=== PATIENT | female | born 1975 | race Caucasian/White ===

== ENCOUNTER 2016-04-26 12:31 | Emergency (ER) | payer OTHER, BC ==
[~2016-04-26] VITALS: Ht 162.6 cm; Wt 93.7 kg
[~2016-04-26 12:31] MED LIST: CYAN10002 IM; FLXHP PO; MAGNTAB4 PO; RIZA1TAB11 PO; ROPI1TAB29 PO; SUMA6INJ SQ; TOPI100T20 PO; TRAZ100T29 PO; [UNRECOGNIZED DRUG - CODE] IV
[2016-04-26 12:41] VITALS: TEMP 36.6; Ht 162.6 cm; Wt 93.7 kg
[2016-04-26] MEDS ORDERED: HYDROmorphone INJ 1 MG/ML SYR IV STA (13:28)
[2016-04-26] MEDS ORDERED: SODIUM CHLORIDE 0.9% 1000ML 1,000 ML IV STA (13:28)
[2016-04-26] MEDS ORDERED: ONDANSETRON INJ 2 MG/ML 2 ML VIAL IV STA (13:28)
--- NOTE | 2016-04-26 13:28 | EMERGENCY ROOM VISIT NOTE ---
History Report prepared by Bambi: Natalia Steel Under the Supervision of: Dr. Mookie Good M.D. First contact with patient: 13:16 Chief Complaint: CONSTIPATION Stated Complaint: ABDOMINAL PAIN, DIFFICULTY URINATING & BOWEL MOVEM Nursing Triage Summary: Triage note: Pt reports constipation. Pt reports she has not had a bm since wednesday. pt reports she had a hysterectomy 9 weeks ago. Pt reports "i am struggling to urinate too that started on ." History of Present Illness The patient is a 41 year old female who presents to the Emergency Room with complaints of persistent constipation for the past 5 days. She also complains of abdominal pain, rating her discomfort as a 7/10. She has tried taking Ex-Lax , and states she has had "very small" bowel movements, but still feels like she is backed up. The patient has a history of gastric bypass surgery in 2002 and reports she experienced a bowel obstruction afterwards. She denies any fevers, rashes or pain or swelling in her legs. She notes she finds urinating "difficult ", but denies any dysuria or hematuria. She did undergo a hysterectomy 9 weeks ago. 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 A total of 10 systems reviewed and were otherwise negative. Past Medical & Surgical Medical Problems: (1) Anemia (2) Kidney stone (3) Migraine Surgical Problems: (1) Hx of appendectomy (2) Hx of cholecystectomy (3) Previous section Family History Diabetes mellitus FHx: cancer Hypertension Migraines Social History Smoking Status: Never Smoker Alcohol Use: occasionally Drug Use: none Marital Status: Housing Status: lives with family Occupation Status: unemployed Current/Historical Medications Scheduled Cyanocobalamin (Cyanocobalamin), 1,000 MG IM MONTHLY Cyclobenzaprine Hcl (Flexeril), 1 TAB PO TID Iron Dextran (Infed), 1 DOSE IV MONTHLY Magnesium Chloride (Slow-Mag Tab), 64 MG PO DAILY Rizatriptan Benzoate (Rizatriptan Benzoate), 10 MG PO PRN/UD Topiramate (Topamax), 200 MG PO BID Scheduled PRN Sumatriptan Succinate (Imitrex), 6 MG SQ UD PRN for Migraine Allergies Coded Allergies: Codeine (Verified Allergy, Intermediate, "CHEST CRAMPS", 01/08/14) tolerates hydromorphone Pramipexole (Unverified Allergy, Intermediate, INCREASED SYMPTOMS OF RLS, 01/08/14) Meperidine (Verified Allergy, Unknown, HIVES, 01/08/14) Morphine (Verified Allergy, Unknown, chest cramps, 01/08/14) tolerates hydromorphone Trazodone (Verified Allergy, Unknown, "UNABLE TO WALK", 01/08/14) Physical Exam Vital Signs Date Time Temp Pulse Resp B/P Pulse Ox O2 Delivery O2 Flow Rate FiO2 04/26/16 16:31 81 16 128/80 98 04/26/16 14:00 88 18 125/86 97 Room Air 04/26/16 12:41 36.6 100 18 155/103 98 Room Air Physical Exam GENERAL: Patient is well appearing and in moderate distress. HEENT: No acute trauma, normocephalic atraumatic, mucous membranes moist, no nasal congestion, no scleral icterus. NECK: No stridor, no adenopathy, no meningismus, trachea is midline. LUNGS: No dyspnea. Clear to auscultation and equal bilaterally. No wheeze, no rhonchi. HEART: Regular rate and rhythm. No murmurs, rubs, gallops appreciated. ABDOMEN: Soft, moderate left sided abdominal tenderness to palpation, hyperactive bowel sounds, no masses appreciated, no peritonitis. BACK: No midline tenderness, no CVA tenderness EXTREMITIES: Normal motion all extremities, no cyanosis, no edema. NEUROLOGIC: Alert and oriented, no acute motor or sensory deficits, no focal weakness, cranial nerves grossly intact. SKIN: No rash, no jaundice, no diaphoresis. Medical Decision & Procedures ER Provider Diagnostic Interpretation: This CT scan was reviewed and interpreted by the radiologist and reviewed by myself. CT OF THE ABDOMEN AND PELVIS WITH CONTRAST IMPRESSION: 1. No acute process within the abdomen or pelvis. 2. Mild gaseous distention of the colon without evidence for a bowel obstruction. 3. Small amount of fluid within the pelvis which is likely physiologic. 4. Several fat-containing ventral hernias. 5. No fluid collection to suggest abscess. Electronically signed by: Ortega Palacios M.D. 04/26/2016 2:58 PM Laboratory Results 04/26/16 13:40 Red Blood Count 4.26, Mean Corpuscular Volume 93.9, Mean Corpuscular Hemoglobin 32.6, Mean Corpuscular Hemoglobin Concent 34.8, Mean Platelet Volume 9.4, Neutrophils (%) (Auto) 67.3, Lymphocytes (%) (Auto) 24.5, Monocytes (%) (Auto) 6.4, Eosinophils (%) (Auto) 1.3, Basophils (%) (Auto) 0.3, Neutrophils # (Auto) 4.18, Lymphocytes # (Auto) 1.52, Monocytes # (Auto) 0.40, Eosinophils # (Auto) 0.08, Basophils # (Auto) 0.02 04/26/16 13:40 Test 04/26/16 13:15 04/26/16 13:40 04/26/16 13:44 Urine Color YELLOW Urine Appearance CLOUDY (CLEAR) Urine pH 5.0 (4.5-7.5) Urine Specific [place] 1.018 (1.000-1.030) Urine Protein NEG (NEG) Urine Glucose (UA) NEG (NEG) Urine Ketones NEG (NEG) Urine Occult Blood NEG (NEG) Urine Nitrite NEG (NEG) Urine Bilirubin NEG (NEG) Urine Urobilinogen NEG (NEG) Urine Leukocyte Esterase SMALL (NEG) Urine WBC (Auto) 1-5 /hpf (0-5) Urine RBC (Auto) 0-4 /hpf (0-4) Urine Hyaline Casts (Auto) 1-5 /lpf (0-5) Urine Epithelial Cells (Auto) >30 /lpf (0-5) Urine Bacteria (Auto) NEG (NEG) Urine Crystals CALCIUM OXALATE (NONE White Blood Count 6.21 K/uL (4.8-10.8) Red Blood Count 4.26 M/uL (4.2-5.4) Hemoglobin 13.9 g/dL (12.0-16.0) Hematocrit 40.0 % (37-47) Mean Corpuscular Volume 93.9 fL (80-100) Mean Corpuscular Hemoglobin 32.6 pg (25-34) Mean Corpuscular Hemoglobin Concent 34.8 g/dl (32-36) Platelet Count 229 K/uL (130-400) Mean Platelet Volume 9.4 fL (7.4-10.4) Neutrophils (%) (Auto) 67.3 % Lymphocytes (%) (Auto) 24.5 % Monocytes (%) (Auto) 6.4 % Eosinophils (%) (Auto) 1.3 % Basophils (%) (Auto) 0.3 % Neutrophils # (Auto) 4.18 K/uL (1.4-6.5) Lymphocytes # (Auto) 1.52 K/uL (1.2-3.4) Monocytes # (Auto) 0.40 K/uL (0.11-0.59) Eosinophils # (Auto) 0.08 K/uL (0-0.5) Basophils # (Auto) 0.02 K/uL (0-0.2) RDW Standard Deviation 42.5 fL (36.4-46.3) RDW Coefficient of Variation 12.5 % (11.5-14.5) Immature Granulocyte % (Auto) 0.2 % Immature Granulocyte # (Auto) 0.01 K/uL (0.00-0.02) Est Creatinine Clear Calc Drug Dose 138.4 ml/min Estimated GFR () 132.1 Estimated GFR (Non- 114.0 BUN/Creatinine Ratio 14.0 (10-20) Calcium Level 8.7 mg/dl (8.5-10.1) Total Bilirubin 0.4 mg/dl (0.2-1) Direct Bilirubin 0.1 mg/dl (0-0.2) Aspartate Amino Transf (AST/SGOT) 15 U/L (15-37) Alanine Aminotransferase (ALT/SGPT) 22 U/L (12-78) Alkaline Phosphatase 75 U/L (45-117) Total Protein 6.9 gm/dl (6.4-8.2) Albumin 3.6 gm/dl (3.4-5.0) Lipase 116 U/L (73-393) Bedside Hemoglobin 13.9 g/dl (12.0-16.0) Bedside Hematocrit 41 % (37-47) Bedside Sodium 137 mEq/L (135-144) Bedside Potassium 7.5 mEq/L (3.3-5.0) Bedside Chloride 107 mEq/L (101-112) Bedside Total CO2 24 mEq/l (24-31) Anion Gap 15.0 mmol/L (16-25) Bedside Blood Urea Nitrogen 11 mg/dl (7-18) Bedside Creatinine 0.6 mg/dl (0.6-1.3) Bedside Glucose (other) 94 mg/dl (70-99) Bedside Ionized Calcium (Yonathan) 1.13 mmol/l (1.12-1.32) Laboratory results as reviewed by me. Medications Administered Medications (Trade) Dose Ordered Sig/Margarita Route Start Time Stop Time Status Last Admin Dose Admin Sodium Chloride (Nss 1000ml) 1,000 ml @ 999 mls/hr Q1H1M STAT IV 04/26/16 13:28 04/26/16 14:28 DC 04/26/16 13:58 999 MLS/HR Ondansetron HCl (Zofran Inj) 4 mg NOW STAT IV 04/26/16 13:28 04/26/16 13:29 DC 04/26/16 13:56 4 MG Hydromorphone HCl (Dilaudid Inj) 1 mg NOW STAT IV 04/26/16 13:28 04/26/16 13:29 DC 04/26/16 13:57 1 MG Hydromorphone HCl (Dilaudid Inj) 0.5 mg NOW STAT IV 04/26/16 15:38 04/26/16 15:39 DC 04/26/16 15:51 0.5 MG Oxycodone HCl (Roxicodone Immediate Rel 5MG Home Pack) 1 homepack UD ONCE PO 04/26/16 15:45 04/26/16 15:46 DC 04/26/16 15:50 1 HOMEPACK ED Course 1323: The patient was evaluated in room B6. A complete history and physical exam was performed. 1328: Dilaudid 1 mg IV, Zofran 4 mg IV, NSS 1000 ml @ 999 mls/hr IV. 1535: I reevaluated the patient. She states she is feeling well but would like more pain medication. She would like to try Magnesium Citrate at home. I discussed her results and discharge instructions and she verbalized complete understanding and agreement. 1538: Dilaudid 0.5 mg IV. 1545: Oxycodone HCl 1 home pack PO. Medical Decision Differential: Appendicitis, Diverticulitis, PUD/Gastritis, Biliary Pathology, UTI, Pyelonephritis, Renal Colic, Bowel Obstruction, Aortic Pathology, Acute Coronary Syndrome, amongst other pathologies entertained. Pleasant 41 yr old female arrives with complaint of abdominal pain and decreased bowel movement. No evidence of SBO on CT, rather enlarged colon of nonspecific origin. I do not see contraindication for mag citrate as outpatient. She has chronic pain issues but I will given limited to go oxy ir today for discomfort. She is aware of symptoms requiring emergent return. She does not have surgical abdomen. She does not have intractable pain. No evidence of acute infection. Stressed PCP follow up. Impression Primary Impression: Abdominal pain, diffuse Scribe Attestation The scribe's documentation has been prepared under my direction and personally reviewed by me in its entirety. I confirm that the note above accurately reflects all work, treatment, procedures, and medical decision making performed by me. Departure Information Dispostion Home / Self-Care Referrals Negro Ríos M.D. (PCP) Patient Instructions Abdominal Pain - [facility], [facility]
[2016-04-26] MEDS ORDERED: OPTIRAY 320 IV PRN (13:45)
[2016-04-26 13:46] LABS: BASO % 0.3 %; BASO ABS # 0.02 K/uL (0-0.2); COMPLETE YES; EOS % 1.3 %; IG% 0.2 %; LYMPH % 24.5 %; LYMPH ABS # 1.52 K/uL (1.2-3.4); MEAN CELL VOLUME 93.9 fL (80-100); MEAN CORPUSCULAR HEMOGLOBIN 32.6 pg (25-34); MEAN CORPUSCULAR HGB CONC 34.8 g/dl (32-36); MEAN PLATELET VOLUME 9.4 fL (7.4-10.4); MONO % 6.4 %; NEUT % 67.3 %; PLATELET COUNT 229 K/uL (130-400); RED BLOOD COUNT 4.26 M/uL (4.2-5.4); WHITE BLOOD COUNT 6.21 K/uL (4.8-10.8)
[2016-04-26 14:00] LABS: ISTAT CREATININE 0.6 mg/dl (0.6-1.3); ISTAT HEMOGLOBIN 13.9 g/dl (12.0-16.0); ISTAT IONIZED CALCIUM 1.13 mmol/l (1.12-1.32)
[2016-04-26 14:02] LABS: CALCIUM 8.7 mg/dl (8.5-10.1); CREATININE 0.6 mg/dl (0.60-1.20); POTASSIUM 3.8 mmol/L (3.5-5.1)
[2016-04-26] MEDS ORDERED: CYCL5TAB PO (14:30)
[2016-04-26] MEDS ORDERED: CYNI1000 IM (14:31)
[2016-04-26] MEDS ORDERED: [UNRECOGNIZED DRUG - CODE] IV (14:31)
[2016-04-26 14:35] LABS: URINE APPEARANCE CLOUDY (CLEAR); URINE BILIRUBIN NEG (NEG); URINE COLOR YELLOW; URINE EPITHELIAL CELL AUTO >30 /lpf (0-5); URINE NITRITE NEG (NEG); URINE SPECIFIC GRAVITY 1.018 (1.000-1.030); UROBILINOGEN NEG (NEG); ZZUR CULT IF INDIC CLEAN CATCH NO
[2016-04-26 14:40] LABS: MANUAL MICROSCOPIC REQUIRED? NO; REVIEW REQ? YES
--- NOTE | 2016-04-26 14:59 | DIAGNOSTIC IMAGING REPORT ---
CT OF THE ABDOMEN AND PELVIS WITH CONTRAST CLINICAL HISTORY: Diffuse abdominal pain. Constipation. Hysterectomy 9 weeks ago. COMPARISON STUDY: Abdominal ultrasound March 08, 2013 and abdominal series June 26, 2013. TECHNIQUE: Following IV administration of 118 mL of [id number], axial images of the abdomen and pelvis were obtained from the lung bases to the proximal femurs. Images were reviewed in the axial, sagittal, and coronal planes. IV contrast was administered without complication. CT DOSE: 884.85 mGy.cm FINDINGS: Several subcentimeter hepatic lesions are too small to characterize but likely reflect cysts. Prominence of the bile ducts is likely due to prior cholecystectomy. There is no peripancreatic infiltration. There are postsurgical findings at the gastroesophageal junction with findings suggestive of a Michael-en-Y bypass. There is no evidence for a bowel obstruction. There is mild gaseous distention of the colon. The appendix is surgically absent. A 5 mm fat attenuation lesion within the upper pole of the right kidney represents an angiomyolipoma. The spleen, adrenal glands and pancreas are unremarkable. There is no pneumatosis, free air or portal venous gas. A small amount of fluid within the pelvis is noted. The uterus is surgically absent. The amount of stool within the colon and rectum is within normal limits. There are several fat-containing ventral hernias. Skeletal structures are unremarkable. IMPRESSION: 1. No acute process within the abdomen or pelvis. 2. Mild gaseous distention of the colon without evidence for a bowel obstruction. 3. Small amount of fluid within the pelvis which is likely physiologic. 4. Several fat-containing ventral hernias. 5. No fluid collection to suggest abscess. Electronically signed by: Ortega Palacios M.D. 04/26/2016 2:58 PM Dictated Date/Time: 04/26/2016 2:50 PM
[2016-04-26] MEDS ORDERED: HYDROmorphone INJ 0.5 MG/0.5 ML SYR IV STA (15:38)
[2016-04-26] MEDS ORDERED: OXYCODONE IR HOME PACK PO ONE (15:45)
[2016-04-26 16:31] VITALS: BP 128/80; PULSE 81; O2SAT 98
== END 2016-04-26 16:56 | disposition home or self-care (01) ==
LOC: C.EDB 12:32
DX: R10.9 Unspecified abdominal pain (principal); Z90.49 Acquired absence of other specified parts of digestive tract